=== PATIENT | female | born 1940 | race Caucasian/White ===

== ENCOUNTER 2021-12-23 13:56 | Inpatient (IN) | payer MEDICARE ==
[~2021-12-23] VITALS: Ht 149.9 cm; Wt 84.0 kg
[~2021-12-23 13:56] MED LIST: AMAR1TAB PO; ELIQ2.5T PO; FERR150C PO; FURO40TA2 PO; METF-839 PO; METO50TA7 PO; PACE200T PO; SITA50TAB PO; VALS1TAB66 PO
[2021-12-23] MEDS ORDERED: MORPHINE 2 MG/ML 1ML VIAL IV ONE (18:10)
[2021-12-23] MEDS ORDERED: ONDANSETRON 4MG/2ML VIAL IV ONE (18:10)
[2021-12-23] MEDS: NS 1,000 ML IV SCH ×2 (18:29→21:32)
[2021-12-23] MEDS ORDERED: ISOVUE-370 76% 100ML VIAL As Ordered ONE (18:30)
[2021-12-23 18:31] LABS: BASO % 0.3 % (0.0-1.0); EOS % 0.2 % (0.0-3.0); HEMATOCRIT 34.5 % (36.0-47.0); LYMPH # 0.6 10^3/uL (1.5-5.0); LYMPH % 4.4 % (24.0-44.0); MEAN CORPUSCULAR HEMOGLOBIN 23.5 pg (27.0-33.0); MONO # 0.9 10^3/uL (0.0-0.8); MONO % 7.4 % (2.0-8.0); NEUTROPHILS % 87.3 % (36.0-66.0); PLATELET COUNT, AUTOMATED 303 10^3/uL (150-450); RED BLOOD COUNT 4.26 10^6/uL (4.00-5.40); WHITE BLOOD COUNT 12.6 10^3/uL (4.0-10.0)
[2021-12-23 19:01] LABS: ALBUMIN 4.2 GM/DL (3.2-5.2); BILIRUBIN,DIRECT 0.4 MG/DL (0.0-0.2); BILIRUBIN,TOTAL 1.1 MG/DL (0.2-1.0); TOTAL PROTEIN 7.5 GM/DL (6.4-8.2)
[2021-12-23 20:28] LABS: CK-MB VALUE MASS 5.9 NG/ML (<3.6); MB/CK RELATIVE INDEX 8.19 (< OR =4)
[2021-12-23 20:36] LABS: RSV AMPLIFICATION NEGATIVE (NEGATIVE)
[2021-12-23] MEDS ORDERED: GLUCAGON INJ 1MG VIAL SC PRN (21:05)
[2021-12-23] MEDS ORDERED: GLUCOSE 4GM CHEW TABLET PO PRN (21:05)
[2021-12-23] MEDS ORDERED: PANTOPRAZOLE 40MG VIAL IV ONE (21:30)
[2021-12-23] MEDS ORDERED: ELIQ2.5T PO (22:06)
[2021-12-23] MEDS ORDERED: VENO20IN IV (22:06)
[2021-12-23] MEDS ORDERED: METF500T13 PO (22:06)
[2021-12-23] MEDS ORDERED: AMAR1TAB PO (22:06)
[2021-12-23] MEDS ORDERED: AMIO200T49 PO (22:06)
[2021-12-23] MEDS ORDERED: VALS1TAB66 PO (22:06)
[2021-12-23] MEDS ORDERED: SITA50TAB PO (22:06)
[2021-12-23] MEDS ORDERED: CYAN1000VL IM (22:06)
[2021-12-23] MEDS ORDERED: METO50TA7 PO (22:06)
[2021-12-23] MEDS ORDERED: FURO40TA2 PO (22:06)
[2021-12-23] MEDS ORDERED: HOME MED LIST COMPLETE! XX SCH (22:10)
[2021-12-23] MEDS: INSULIN LISPRO (NovoLOG) PER UNIT SC SCH (22:34)
[2021-12-24] MEDS: NS 1,000 ML IV SCH ×3 (02:31→19:41)
[2021-12-24] MEDS: HYDROMORPHONE HCL 0.5 MG/ 0.5 ML SYRINGE (J1170 PER 1) IV PRN ×2 (02:38→11:57)
[2021-12-24 03:14] VITALS: BP 139/66
[2021-12-24] MEDS: INSULIN LISPRO (NovoLOG) PER UNIT SC SCH ×3 (06:19→18:00)
[2021-12-24 07:03] LABS: CALCIUM LEVEL 9.7 MG/DL (8.8-10.2); CREATININE FOR GFR 1.27 MG/DL (0.55-1.30); GLOMERULAR FILTRATION RATE 42.8 (>32); POTASSIUM SERUM 4.3 MEQ/L (3.5-5.1)
[2021-12-24 07:04] VITALS: BP 140/72
[2021-12-24 07:04] LABS: MAGNESIUM LEVEL 1.9 MG/DL (1.8-2.4)
[2021-12-24] MEDS: METOPROLOL TART 25 MG TABLET PO SCH ×2 (09:26→21:44)
[2021-12-24] MEDS: VALSARTAN 40MG TABLET (DIOVAN) PO SCH (09:26)
[2021-12-24] MEDS: AMIODARONE 200 MG TAB (PACERONE) PO SCH (09:26)
[2021-12-24 13:45] VITALS: BP 96/40
[2021-12-24] MEDS: MORPHINE 4 MG/ML 1ML VIAL/SYRINGE IV PRN (19:42)
[2021-12-24 22:00] VITALS: BP 126/53
[2021-12-25] MEDS: MORPHINE 4 MG/ML 1ML VIAL/SYRINGE IV PRN ×2 (02:27→11:41)
[2021-12-25] MEDS: NS 1,000 ML IV SCH ×2 (04:16→21:42)
[2021-12-25 06:00] VITALS: BP 91/51
[2021-12-25] MEDS: INSULIN LISPRO (NovoLOG) PER UNIT SC SCH ×5 (06:00→23:49)
[2021-12-25 06:13] LABS: HEMATOCRIT 27.6 % (36.0-47.0); MEAN CORPUSCULAR HEMOGLOBIN 23.8 pg (27.0-33.0); MEAN CORPUSCULAR HGB CONC 28.6 g/dl (32.0-36.5); MEAN CORPUSCULAR VOLUME 83.1 fl (80.0-96.0); PLATELET COUNT, AUTOMATED 237 10^3/uL (150-450); RED BLOOD COUNT 3.32 10^6/uL (4.00-5.40)
[2021-12-25 06:20] LABS: HEMOGLOBIN 7.9 g/dl (12.0-15.5)
[2021-12-25 06:38] LABS: CALCIUM LEVEL 8.8 MG/DL (8.8-10.2); CREATININE FOR GFR 1.3 MG/DL (0.55-1.30); GLOMERULAR FILTRATION RATE 41.6 (>32)
[2021-12-25] MEDS ORDERED: GASTROGRAFIN SOLUTION 30ML (Q9963) As Ordered ONE (08:41)
[2021-12-25] MEDS: METOPROLOL TART 25 MG TABLET PO SCH ×2 (09:00→21:00)
[2021-12-25] MEDS: AMIODARONE 200 MG TAB (PACERONE) PO SCH (09:00)
[2021-12-25] MEDS: VALSARTAN 40MG TABLET (DIOVAN) PO SCH (09:00)
[2021-12-25 14:45] VITALS: BP 101/62
[2021-12-25] MEDS: METOCLOPRAMIDE INJ 10MG/2ML VIAL (J2765 PER 1) IV PRN (14:51)
[2021-12-25 22:00] VITALS: BP 101/52
[2021-12-26 02:00] VITALS: BP 118/50
[2021-12-26 06:00] VITALS: BP 117/50
[2021-12-26] MEDS: INSULIN LISPRO (NovoLOG) PER UNIT SC SCH ×3 (06:00→18:01)
[2021-12-26 06:08] LABS: HEMATOCRIT 30.2 % (36.0-47.0); HEMOGLOBIN 8.5 g/dl (12.0-15.5); MEAN CORPUSCULAR HEMOGLOBIN 23.5 pg (27.0-33.0); MEAN CORPUSCULAR HGB CONC 28.1 g/dl (32.0-36.5); MEAN CORPUSCULAR VOLUME 83.4 fl (80.0-96.0); PLATELET COUNT, AUTOMATED 236 10^3/uL (150-450); RED BLOOD COUNT 3.62 10^6/uL (4.00-5.40); WHITE BLOOD COUNT 5.1 10^3/uL (4.0-10.0)
[2021-12-26 06:26] LABS: CALCIUM LEVEL 9.9 MG/DL (8.8-10.2); CREATININE FOR GFR 1.14 MG/DL (0.55-1.30); GLOMERULAR FILTRATION RATE 48.5 (>32); POTASSIUM SERUM 3.7 MEQ/L (3.5-5.1)
[2021-12-26] MEDS: VALSARTAN 40MG TABLET (DIOVAN) PO SCH (09:00)
[2021-12-26] MEDS: METOPROLOL TART 25 MG TABLET PO SCH ×2 (09:00→20:11)
[2021-12-26] MEDS: AMIODARONE 200 MG TAB (PACERONE) PO SCH (09:00)
[2021-12-26] MEDS: D5W/0.45% SODIUM CHLORIDE 1,000 ML IV SCH ×2 (10:31→18:03)
[2021-12-26 14:00] VITALS: BP 115/50
[2021-12-26] MEDS ORDERED: CHLORASEPTIC SPRAY MT PRN (19:50)
[2021-12-26] MEDS: CEPACOL LOZENGE PO PRN ×2 (20:09→21:57)
[2021-12-26 20:11] VITALS: BP 113/50
[2021-12-27] VITALS (7 sets, daily range): BP systolic 95–132; BP diastolic 52–71
[2021-12-27] MEDS: MORPHINE 4 MG/ML 1ML VIAL/SYRINGE IV PRN (00:05)
[2021-12-27] MEDS: INSULIN LISPRO (NovoLOG) PER UNIT SC SCH ×4 (00:09→18:20)
[2021-12-27] MEDS: D5W/0.45% SODIUM CHLORIDE 1,000 ML IV SCH (03:51)
[2021-12-27 06:52] LABS: HEMATOCRIT 32.2 % (36.0-47.0); HEMOGLOBIN 9.2 g/dl (12.0-15.5); MEAN CORPUSCULAR HEMOGLOBIN 24.1 pg (27.0-33.0); MEAN CORPUSCULAR HGB CONC 28.6 g/dl (32.0-36.5); MEAN CORPUSCULAR VOLUME 84.5 fl (80.0-96.0); PLATELET COUNT, AUTOMATED 241 10^3/uL (150-450); RED BLOOD COUNT 3.81 10^6/uL (4.00-5.40); WHITE BLOOD COUNT 6.6 10^3/uL (4.0-10.0)
[2021-12-27 07:15] LABS: CREATININE FOR GFR 1.04 MG/DL (0.55-1.30); GLOMERULAR FILTRATION RATE 53.9 (>32); POTASSIUM SERUM 3.8 MEQ/L (3.5-5.1)
[2021-12-27] MEDS: METOPROLOL TART 25 MG TABLET PO SCH ×2 (07:52→21:00)
[2021-12-27] MEDS: VALSARTAN 40MG TABLET (DIOVAN) PO SCH (07:52)
[2021-12-27] MEDS: AMIODARONE 200 MG TAB (PACERONE) PO SCH (09:29)
[2021-12-27] MEDS: D5W 1,000 ML IV SCH (10:38)
[2021-12-27 13:35] LABS: CK-MB VALUE MASS 3.1 NG/ML (<3.6); MB/CK RELATIVE INDEX 3.26 (< OR =4)
[2021-12-27] MEDS ORDERED: METOPROLOL 5 MG/5 ML VIAL IV PRN ×2 (13:50→18:55)
[2021-12-27] MEDS: ACETAMINOPHEN TAB 650MG DOSE (2X325MG) PO PRN (18:08)
[2021-12-28] VITALS (7 sets, daily range): BP systolic 105–140; BP diastolic 52–63
[2021-12-28] MEDS: D5W 1,000 ML IV SCH ×2 (00:23→16:46)
[2021-12-28] MEDS: MORPHINE 4 MG/ML 1ML VIAL/SYRINGE IV PRN ×2 (00:23→09:41)
[2021-12-28 06:28] LABS: HEMATOCRIT 34.1 % (36.0-47.0); HEMOGLOBIN 9.8 g/dl (12.0-15.5); MEAN CORPUSCULAR HEMOGLOBIN 23.6 pg (27.0-33.0); MEAN CORPUSCULAR HGB CONC 28.7 g/dl (32.0-36.5); MEAN CORPUSCULAR VOLUME 82.2 fl (80.0-96.0); PLATELET COUNT, AUTOMATED 295 10^3/uL (150-450); RED BLOOD COUNT 4.15 10^6/uL (4.00-5.40); WHITE BLOOD COUNT 13.1 10^3/uL (4.0-10.0)
[2021-12-28 06:49] LABS: CALCIUM LEVEL 10.1 MG/DL (8.8-10.2); CREATININE FOR GFR 1.03 MG/DL (0.55-1.30); GLOMERULAR FILTRATION RATE 54.5 (>32); POTASSIUM SERUM 3.8 MEQ/L (3.5-5.1)
[2021-12-28] MEDS: INSULIN LISPRO (NovoLOG) PER UNIT SC SCH ×4 (06:54→18:07)
[2021-12-28] MEDS: METOPROLOL TART 25 MG TABLET PO SCH ×2 (09:42→20:40)
[2021-12-28] MEDS: AMIODARONE 200 MG TAB (PACERONE) PO SCH (09:44)
[2021-12-28] MEDS: METOCLOPRAMIDE INJ 10MG/2ML VIAL (J2765 PER 1) IV PRN (09:45)
[2021-12-28] MEDS: VALSARTAN 40MG TABLET (DIOVAN) PO SCH (09:51)
[2021-12-29] VITALS (8 sets, daily range): BP systolic 92–129; BP diastolic 46–80
[2021-12-29] MEDS: INSULIN LISPRO (NovoLOG) PER UNIT SC SCH ×5 (00:40→23:03)
[2021-12-29 06:24] LABS: HEMATOCRIT 29.1 % (36.0-47.0); HEMOGLOBIN 8.7 g/dl (12.0-15.5); MEAN CORPUSCULAR HEMOGLOBIN 23.8 pg (27.0-33.0); MEAN CORPUSCULAR HGB CONC 29.9 g/dl (32.0-36.5); MEAN CORPUSCULAR VOLUME 79.5 fl (80.0-96.0); PLATELET COUNT, AUTOMATED 247 10^3/uL (150-450); RED BLOOD COUNT 3.66 10^6/uL (4.00-5.40)
[2021-12-29] MEDS: D5W 1,000 ML IV SCH (06:24)
[2021-12-29 06:51] LABS: CALCIUM LEVEL 9.7 MG/DL (8.8-10.2); CREATININE FOR GFR 0.95 MG/DL (0.55-1.30); GLOMERULAR FILTRATION RATE 59.8 (>32); POTASSIUM SERUM 3.3 MEQ/L (3.5-5.1)
[2021-12-29] MEDS: AMIODARONE 200 MG TAB (PACERONE) PO SCH (08:47)
[2021-12-29] MEDS: METOPROLOL TART 25 MG TABLET PO SCH ×2 (08:48→21:23)
[2021-12-29] MEDS: VALSARTAN 40MG TABLET (DIOVAN) PO SCH (08:48)
[2021-12-29] MEDS: MORPHINE 4 MG/ML 1ML VIAL/SYRINGE IV PRN ×2 (08:50→22:58)
[2021-12-29] MEDS: cefTRIAXone SOD 1 GM in D5W MINI-BAG PLUS 50 ML IV SCH ×2 (11:17→22:51)
[2021-12-29] MEDS: KCL 10MEQ/100ML SWI (KRUN) 10 MEQ in IV 1 EA IV SCH ×6 (12:38→19:10)
[2021-12-29] MEDS ORDERED: predniSONE 20 MG TAB PO ONE (17:00)
[2021-12-29] MEDS: predniSONE 20 MG TAB PO SCH (21:22)
[2021-12-30] VITALS (14 sets, daily range): BP systolic 85–144; BP diastolic 40–73
[2021-12-30] MEDS ORDERED: NS 1,000 ML IV ONE ×2 (00:50→02:10)
[2021-12-30] MEDS: D5W 1,000 ML IV SCH ×2 (03:24→17:05)
[2021-12-30] MEDS: INSULIN LISPRO (NovoLOG) PER UNIT SC SCH ×4 (06:38→23:24)
[2021-12-30] MEDS ORDERED: KCL 20MEQ IN D5W 1000ML 1,000 ML IV SCH (08:33)
[2021-12-30] MEDS ORDERED: KCL 10MEQ/100ML SWI (KRUN) 10 MEQ in IV 1 EA IV SCH (09:00)
[2021-12-30] MEDS: AMIODARONE 200 MG TAB (PACERONE) PO SCH (09:29)
[2021-12-30] MEDS: VALSARTAN 40MG TABLET (DIOVAN) PO SCH (09:31)
[2021-12-30] MEDS: predniSONE 20 MG TAB PO SCH ×2 (09:31→20:32)
[2021-12-30] MEDS: METOPROLOL TART 25 MG TABLET PO SCH ×2 (09:32→20:32)
[2021-12-30] MEDS: PIPERACILLIN/TAZOBACTAM SOD 3.375 GM in D5W MINI-BAG PLUS 50 ML IV SCH ×3 (09:33→20:31)
[2021-12-30] MEDS ORDERED: LIDOCAINE 1% MDV 20ML VIAL As Ordered ONE (14:14)
[2021-12-30] MEDS: SODIUM CHLORIDE 0.9% INJ 10 ML SYR IV SCH (17:10)
[2021-12-31] VITALS: BP 110/52
[2021-12-31] MEDS ORDERED: ACETAMINOPHEN *IV* 1,000 MG in IV 1 EA IV ONE ×2
[2021-12-31] MEDS: D5W 1,000 ML IV SCH ×2 (00:18→12:35)
[2021-12-31] MEDS: PIPERACILLIN/TAZOBACTAM SOD 3.375 GM in D5W MINI-BAG PLUS 50 ML IV SCH ×4 (03:08→21:00)
[2021-12-31 04:00] VITALS: BP 122/59
[2021-12-31] MEDS: SODIUM CHLORIDE 0.9% INJ 10 ML SYR IV SCH ×2 (05:18→17:14)
[2021-12-31] MEDS: INSULIN LISPRO (NovoLOG) PER UNIT SC SCH ×3 (05:21→17:15)
[2021-12-31 05:53] LABS: HEMATOCRIT 29.1 % (36.0-47.0); HEMOGLOBIN 8.8 g/dl (12.0-15.5); MEAN CORPUSCULAR HEMOGLOBIN 24.1 pg (27.0-33.0); MEAN CORPUSCULAR HGB CONC 30.2 g/dl (32.0-36.5); MEAN CORPUSCULAR VOLUME 79.7 fl (80.0-96.0); PLATELET COUNT, AUTOMATED 266 10^3/uL (150-450); RED BLOOD COUNT 3.65 10^6/uL (4.00-5.40); WHITE BLOOD COUNT 14.4 10^3/uL (4.0-10.0)
[2021-12-31 06:24] LABS: BLOOD UREA NITROGEN 21 MG/DL (7-18); CALCIUM LEVEL 9.8 MG/DL (8.8-10.2); CARBON DIOXIDE LEVEL 26 MEQ/L (21-32); CHLORIDE LEVEL 102 MEQ/L (98-107); CREATININE FOR GFR 0.89 MG/DL (0.55-1.30); GLOMERULAR FILTRATION RATE > 60.0 (>32); GLUCOSE, FASTING 222 MG/DL (70-100); MAGNESIUM LEVEL 1.5 MG/DL (1.8-2.4); POTASSIUM SERUM 3.6 MEQ/L (3.5-5.1); SODIUM LEVEL 136 MEQ/L (136-145)
[2021-12-31] MEDS: MAG SULF 1GM/100ML (MAG RUN) 1 GM in IV 1 EA IV SCH ×2 (06:44→08:25)
[2021-12-31 08:00] VITALS: BP 121/54
[2021-12-31] MEDS: predniSONE 20 MG TAB PO SCH ×2 (08:30→21:00)
[2021-12-31] MEDS: AMIODARONE 200 MG TAB (PACERONE) PO SCH (08:30)
[2021-12-31] MEDS: METOPROLOL TART 25 MG TABLET PO SCH ×2 (08:30→21:00)
[2021-12-31] MEDS: VALSARTAN 40MG TABLET (DIOVAN) PO SCH (08:33)
[2021-12-31 11:35] VITALS: BP 120/57
[2021-12-31 15:51] VITALS: BP 108/52
[2021-12-31] MEDS ORDERED: BUPIVACAINE HCL 0.25% 30ML VIAL As Ordered ONE (17:43)
[2021-12-31] MEDS ORDERED: ETOMIDATE INJ 20MG/10ML VIAL As Ordered ONE (18:34)
[2021-12-31] MEDS ORDERED: fentaNYL 250 MCG/5 ML INJECTION As Ordered ONE (18:34)
[2021-12-31] MEDS ORDERED: LIDOCAINE 2% INJ 100 MG/5 ML SYRINGE As Ordered ONE ×3 (18:34→18:37)
[2021-12-31] MEDS ORDERED: ROCURONIUM BROMIDE 50 MG/5 ML VIAL As Ordered ONE ×3 (18:34→22:33)
[2021-12-31] MEDS ORDERED: PHENYLephrine 500MCG 5ML (100MCG/ML) SYRINGE As Ordered ONE (19:18)
[2021-12-31] MEDS ORDERED: ePHEDrine SULFATE 25 MG/5 ML(5MG/ML) SYRINGE As Ordered ONE (19:18)
[2021-12-31] MEDS ORDERED: dexameTHASONE 4 MG/ML 1ML VIAL (J1100 PER 1MG) As Ordered ONE (20:29)
[2021-12-31] MEDS ORDERED: ONDANSETRON 4MG/2ML VIAL As Ordered ONE (20:32)
[2021-12-31] MEDS ORDERED: SUGAMMADEX SODIUM 500 MG/5 ML VIAL (BRIDION) As Ordered ONE (20:33)
[2021-12-31] MEDS ORDERED: ACETAMINOPHEN 1000MG 100ML IV BTL (OFIRMEV) (J0131 PER 10MG) As Ordered ONE (20:34)
[2021-12-31] MEDS ORDERED: ZOSYN 3.375GM VIAL As Ordered ONE (21:31)
[2022-01-01] VITALS (10 sets, daily range): BP systolic 86–150; BP diastolic 43–62
[2022-01-01] MEDS ORDERED: PHENYLephrine 500MCG 5ML (100MCG/ML) SYRINGE As Ordered ONE (00:35)
[2022-01-01] MEDS ORDERED: fentaNYL 100 MCG/2 ML INJECTION As Ordered ONE (01:18)
[2022-01-01] MEDS ORDERED: ONDANSETRON 4MG/2ML VIAL IV PRN (01:30)
[2022-01-01] MEDS ORDERED: LR 1,000 ML IV SCH (01:30)
[2022-01-01] MEDS ORDERED: HYDROMORPHONE HCL 0.5 MG/ 0.5 ML SYRINGE (J1170 PER 1) IV PRN (01:30)
[2022-01-01] MEDS ORDERED: fentaNYL 100 MCG/2 ML INJECTION IV PRN (01:30)
[2022-01-01] MEDS: D5W/LR 1,000 ML IV SCH ×2 (02:36→12:16)
[2022-01-01] MEDS: PIPERACILLIN/TAZOBACTAM SOD 3.375 GM in D5W MINI-BAG PLUS 50 ML IV SCH ×4 (02:49→20:01)
[2022-01-01] MEDS ORDERED: NS 1,000 ML IV ONE (04:00)
[2022-01-01] MEDS: INSULIN LISPRO (NovoLOG) PER UNIT SC SCH ×5 (05:13→23:03)
[2022-01-01] MEDS: SODIUM CHLORIDE 0.9% INJ 10 ML SYR IV SCH ×2 (05:14→17:41)
[2022-01-01 06:38] LABS: HEMATOCRIT 28.7 % (36.0-47.0); HEMOGLOBIN 8.4 g/dl (12.0-15.5); MEAN CORPUSCULAR HEMOGLOBIN 23.9 pg (27.0-33.0); MEAN CORPUSCULAR HGB CONC 29.3 g/dl (32.0-36.5); MEAN CORPUSCULAR VOLUME 81.8 fl (80.0-96.0); PLATELET COUNT, AUTOMATED 293 10^3/uL (150-450); RED BLOOD COUNT 3.51 10^6/uL (4.00-5.40); WHITE BLOOD COUNT 19.2 10^3/uL (4.0-10.0)
[2022-01-01 07:09] LABS: BLOOD UREA NITROGEN 19 MG/DL (7-18); CALCIUM LEVEL 9.2 MG/DL (8.8-10.2); CARBON DIOXIDE LEVEL 21 MEQ/L (21-32); CHLORIDE LEVEL 103 MEQ/L (98-107); CREATININE FOR GFR 0.74 MG/DL (0.55-1.30); GLOMERULAR FILTRATION RATE > 60.0 (>32); GLUCOSE, FASTING 251 MG/DL (70-100); SODIUM LEVEL 137 MEQ/L (136-145)
[2022-01-01] MEDS: predniSONE 20 MG TAB PO SCH ×2 (09:38→20:02)
[2022-01-01] MEDS: VALSARTAN 40MG TABLET (DIOVAN) PO SCH (09:38)
[2022-01-01] MEDS: AMIODARONE 200 MG TAB (PACERONE) PO SCH (09:38)
[2022-01-01] MEDS: METOPROLOL TART 25 MG TABLET PO SCH ×2 (09:38→20:02)
[2022-01-01 10:11] LABS: BASO % 0.1 % (0.0-1.0); HEMATOCRIT 27.9 % (36.0-47.0); HEMOGLOBIN 8.3 g/dl (12.0-15.5); LYMPH # 0.4 10^3/uL (1.5-5.0); LYMPH % 1.8 % (24.0-44.0); MEAN CORPUSCULAR HEMOGLOBIN 23.9 pg (27.0-33.0); MEAN CORPUSCULAR HGB CONC 29.7 g/dl (32.0-36.5); MEAN CORPUSCULAR VOLUME 80.4 fl (80.0-96.0); MONO # 1.1 10^3/uL (0.0-0.8); MONO % 5.3 % (2.0-8.0); NEUTROPHILS # 18.8 10^3/uL (1.5-8.5); NEUTROPHILS % 92.3 % (36.0-66.0); PLATELET COUNT, AUTOMATED 295 10^3/uL (150-450); RED BLOOD COUNT 3.47 10^6/uL (4.00-5.40); WHITE BLOOD COUNT 20.3 10^3/uL (4.0-10.0)
[2022-01-01 10:28] LABS: BILIRUBIN,TOTAL 0.4 MG/DL (0.2-1.0); CALCIUM LEVEL 9.4 MG/DL (8.8-10.2); CREATININE FOR GFR 0.96 MG/DL (0.55-1.30); GLOMERULAR FILTRATION RATE 59.1 (>32); TOTAL PROTEIN 4.4 GM/DL (6.4-8.2)
[2022-01-01] MEDS: MORPHINE 4 MG/ML 1ML VIAL/SYRINGE IV PRN (14:27)
[2022-01-01] MEDS ORDERED: INSULIN LISPRO (NovoLOG) PER UNIT SC SCH (18:00)
[2022-01-01] MEDS ORDERED: MULTIVITAMIN -ADULT INJECTION 10 ML, ZINC/COPPER/MANGANESE/SELENIUM 1 ML in AMINO AC/EL... IV SCH (18:00)
[2022-01-01] MEDS ORDERED: FAT EMULSION IV 20% 500 ML IV SCH (18:00)
[2022-01-02] VITALS (15 sets, daily range): BP systolic 82–150; BP diastolic 40–86
[2022-01-02] MEDS ORDERED: NS 500 ML IV ONE ×2 (00:30→01:20)
[2022-01-02] MEDS ORDERED: NS 1,000 ML IV SCH (01:20)
[2022-01-02] MEDS: PIPERACILLIN/TAZOBACTAM SOD 3.375 GM in D5W MINI-BAG PLUS 50 ML IV SCH ×4 (02:06→20:17)
[2022-01-02 05:14] LABS: HEMATOCRIT 23.2 % (36.0-47.0); MEAN CORPUSCULAR HEMOGLOBIN 23.8 pg (27.0-33.0); MEAN CORPUSCULAR HGB CONC 29.7 g/dl (32.0-36.5); PLATELET COUNT, AUTOMATED 246 10^3/uL (150-450); WHITE BLOOD COUNT 16.5 10^3/uL (4.0-10.0)
[2022-01-02 05:16] LABS: HEMOGLOBIN 6.9 g/dl (12.0-15.5)
[2022-01-02] MEDS: INSULIN LISPRO (NovoLOG) PER UNIT SC SCH ×4 (05:23→23:53)
[2022-01-02] MEDS: SODIUM CHLORIDE 0.9% INJ 10 ML SYR IV SCH ×2 (05:24→18:34)
[2022-01-02 05:42] LABS: CREATININE FOR GFR 1.1 MG/DL (0.55-1.30); GLOMERULAR FILTRATION RATE 50.5 (>32); POTASSIUM SERUM 4.1 MEQ/L (3.5-5.1)
[2022-01-02] MEDS: LEVEMIR (INSULIN DETEMIR) 1 UNITS/0.01ML SC SCH (09:28)
[2022-01-02 09:30] LABS: MAGNESIUM LEVEL 1.7 MG/DL (1.8-2.4)
[2022-01-02] MEDS: METOPROLOL TART 25 MG TABLET PO SCH ×2 (09:30→20:19)
[2022-01-02] MEDS: AMIODARONE 200 MG TAB (PACERONE) PO SCH (09:31)
[2022-01-02] MEDS ORDERED: MAG SULF 1GM/100ML (MAG RUN) 1 GM in IV 1 EA IV ONE (12:00)
[2022-01-02] MEDS ORDERED: AMINO AC/ELECTROLYTE/DEX/CALC 2,000 ML IV SCH (18:00)
[2022-01-02] MEDS ORDERED: FAT EMULSION IV 20% 500 ML IV SCH (18:00)
[2022-01-03 00:13] VITALS: BP 120/84
[2022-01-03] MEDS: PIPERACILLIN/TAZOBACTAM SOD 3.375 GM in D5W MINI-BAG PLUS 50 ML IV SCH ×4 (02:40→20:27)
[2022-01-03 04:17] VITALS: BP 102/55
[2022-01-03] MEDS: SODIUM CHLORIDE 0.9% INJ 10 ML SYR IV SCH ×2 (05:40→18:13)
[2022-01-03] MEDS: INSULIN LISPRO (NovoLOG) PER UNIT SC SCH ×3 (05:40→18:13)
[2022-01-03 05:46] LABS: HEMATOCRIT 32.9 % (36.0-47.0); HEMOGLOBIN 10.1 g/dl (12.0-15.5); MEAN CORPUSCULAR HEMOGLOBIN 24.8 pg (27.0-33.0); MEAN CORPUSCULAR HGB CONC 30.7 g/dl (32.0-36.5); MEAN CORPUSCULAR VOLUME 80.8 fl (80.0-96.0); PLATELET COUNT, AUTOMATED 234 10^3/uL (150-450); RED BLOOD COUNT 4.07 10^6/uL (4.00-5.40); WHITE BLOOD COUNT 20.9 10^3/uL (4.0-10.0)
[2022-01-03 06:03] LABS: BLOOD UREA NITROGEN 25 MG/DL (7-18); CALCIUM LEVEL 9.1 MG/DL (8.8-10.2); CARBON DIOXIDE LEVEL 26 MEQ/L (21-32); CHLORIDE LEVEL 104 MEQ/L (98-107); CREATININE FOR GFR 0.79 MG/DL (0.55-1.30); GLOMERULAR FILTRATION RATE > 60.0 (>32); GLUCOSE, FASTING 216 MG/DL (70-100); POTASSIUM SERUM 3.5 MEQ/L (3.5-5.1); SODIUM LEVEL 139 MEQ/L (136-145)
[2022-01-03 07:54] VITALS: BP 127/58
[2022-01-03] MEDS: AMIODARONE 200 MG TAB (PACERONE) PO SCH (08:54)
[2022-01-03] MEDS: LEVEMIR (INSULIN DETEMIR) 1 UNITS/0.01ML SC SCH (08:54)
[2022-01-03] MEDS: METOPROLOL TART 25 MG TABLET PO SCH ×2 (08:54→20:29)
[2022-01-03 09:16] LABS: MAGNESIUM LEVEL 1.9 MG/DL (1.8-2.4)
[2022-01-03 11:44] VITALS: BP 134/63
[2022-01-03 15:54] VITALS: BP 146/63
[2022-01-03] MEDS ORDERED: FAT EMULSION IV 20% 500 ML IV SCH (18:00)
[2022-01-03] MEDS ORDERED: AMINO AC/ELECTROLYTE/DEX/CALC 2,000 ML IV SCH (18:00)
[2022-01-03 20:00] VITALS: BP 121/57
[2022-01-03] MEDS: APIXABAN 2.5 MG TAB (ELIQUIS) PO SCH (20:29)
[2022-01-04] VITALS: BP 135/62
[2022-01-04] MEDS: INSULIN LISPRO (NovoLOG) PER UNIT SC SCH ×5 (00:11→23:36)
[2022-01-04] MEDS: PIPERACILLIN/TAZOBACTAM SOD 3.375 GM in D5W MINI-BAG PLUS 50 ML IV SCH ×4 (03:14→21:49)
[2022-01-04] MEDS: MORPHINE 4 MG/ML 1ML VIAL/SYRINGE IV PRN (03:24)
[2022-01-04 04:00] VITALS: BP 144/65
[2022-01-04 04:15] LABS: HEMATOCRIT 31.9 % (36.0-47.0); MEAN CORPUSCULAR HEMOGLOBIN 24.9 pg (27.0-33.0); MEAN CORPUSCULAR HGB CONC 31.3 g/dl (32.0-36.5); MEAN CORPUSCULAR VOLUME 79.4 fl (80.0-96.0); PLATELET COUNT, AUTOMATED 242 10^3/uL (150-450); RED BLOOD COUNT 4.02 10^6/uL (4.00-5.40); WHITE BLOOD COUNT 16.9 10^3/uL (4.0-10.0)
[2022-01-04 04:34] LABS: BLOOD UREA NITROGEN 20 MG/DL (7-18); CARBON DIOXIDE LEVEL 27 MEQ/L (21-32); CHLORIDE LEVEL 106 MEQ/L (98-107); CREATININE FOR GFR 0.66 MG/DL (0.55-1.30); GLOMERULAR FILTRATION RATE > 60.0 (>32); GLUCOSE, FASTING 174 MG/DL (70-100); POTASSIUM SERUM 3.5 MEQ/L (3.5-5.1); SODIUM LEVEL 140 MEQ/L (136-145)
[2022-01-04] MEDS: SODIUM CHLORIDE 0.9% INJ 10 ML SYR IV SCH ×2 (06:06→18:28)
[2022-01-04 07:45] VITALS: BP 121/60
[2022-01-04] MEDS: LEVEMIR (INSULIN DETEMIR) 1 UNITS/0.01ML SC SCH (08:45)
[2022-01-04] MEDS: APIXABAN 2.5 MG TAB (ELIQUIS) PO SCH ×2 (08:46→21:45)
[2022-01-04] MEDS: AMIODARONE 200 MG TAB (PACERONE) PO SCH (08:47)
[2022-01-04] MEDS: METOPROLOL TART 25 MG TABLET PO SCH ×2 (08:48→21:45)
[2022-01-04 11:40] VITALS: BP 110/51
[2022-01-04 16:15] VITALS: BP 107/55
[2022-01-04] MEDS ORDERED: FAT EMULSION IV 20% 500 ML IV SCH (18:00)
[2022-01-04] MEDS ORDERED: AMINO AC/ELECTROLYTE/DEX/CALC 2,000 ML IV SCH (18:00)
[2022-01-04 20:00] VITALS: BP 136/59
[2022-01-04] MEDS: PERCOCET 5MG/325MG TAB PO PRN (21:44)
[2022-01-04] MEDS: SODIUM CHLORIDE 0.9% INJ 10 ML SYR IV PRN (23:21)
[2022-01-05] VITALS: BP 106/53
[2022-01-05] MEDS: PIPERACILLIN/TAZOBACTAM SOD 3.375 GM in D5W MINI-BAG PLUS 50 ML IV SCH ×4 (02:08→20:09)
[2022-01-05 04:00] VITALS: BP 122/57
[2022-01-05] MEDS: INSULIN LISPRO (NovoLOG) PER UNIT SC SCH ×3 (06:11→18:09)
[2022-01-05] MEDS: SODIUM CHLORIDE 0.9% INJ 10 ML SYR IV SCH ×2 (06:11→18:08)
[2022-01-05 08:00] VITALS: BP 116/57
[2022-01-05 08:05] LABS: HEMATOCRIT 29.8 % (36.0-47.0); HEMOGLOBIN 9.1 g/dl (12.0-15.5); MEAN CORPUSCULAR HEMOGLOBIN 24.9 pg (27.0-33.0); MEAN CORPUSCULAR HGB CONC 30.5 g/dl (32.0-36.5); MEAN CORPUSCULAR VOLUME 81.6 fl (80.0-96.0); PLATELET COUNT, AUTOMATED 264 10^3/uL (150-450); RED BLOOD COUNT 3.65 10^6/uL (4.00-5.40); WHITE BLOOD COUNT 9.7 10^3/uL (4.0-10.0)
[2022-01-05 08:32] LABS: ALBUMIN 1.5 GM/DL (3.2-5.2); ALT/SGPT 17 U/L (12-78); BILIRUBIN,TOTAL 0.3 MG/DL (0.2-1.0); BLOOD UREA NITROGEN 20 MG/DL (7-18); CARBON DIOXIDE LEVEL 26 MEQ/L (21-32); CHLORIDE LEVEL 106 MEQ/L (98-107); CREATININE FOR GFR 0.68 MG/DL (0.55-1.30); GLOMERULAR FILTRATION RATE > 60.0 (>32); GLUCOSE, FASTING 203 MG/DL (70-100); MAGNESIUM LEVEL 1.8 MG/DL (1.8-2.4); PHOSPHORUS LEVEL 2.9 MG/DL (2.5-4.9); POTASSIUM SERUM 3.6 MEQ/L (3.5-5.1); SODIUM LEVEL 139 MEQ/L (136-145); TOTAL PROTEIN 4.3 GM/DL (6.4-8.2); TRIGLYCERIDES LEVEL 116 MG/DL (<150)
[2022-01-05] MEDS: LEVEMIR (INSULIN DETEMIR) 1 UNITS/0.01ML SC SCH (08:44)
[2022-01-05] MEDS: AMIODARONE 200 MG TAB (PACERONE) PO SCH (08:44)
[2022-01-05] MEDS: APIXABAN 2.5 MG TAB (ELIQUIS) PO SCH ×2 (08:44→20:08)
[2022-01-05] MEDS: METOPROLOL TART 25 MG TABLET PO SCH ×2 (08:46→20:09)
[2022-01-05 12:00] VITALS: BP 121/56
[2022-01-05 16:00] VITALS: BP 128/78
[2022-01-05] MEDS ORDERED: COLCHICINE 0.6 MG TABLET PO ONE ×2 (16:00→17:00)
[2022-01-05] MEDS ORDERED: FAT EMULSION IV 20% 500 ML IV SCH (18:00)
[2022-01-05] MEDS ORDERED: AMINO AC/ELECTROLYTE/DEX/CALC 2,000 ML IV SCH (18:00)
[2022-01-05 20:00] VITALS: BP 130/78
[2022-01-05] MEDS ORDERED: GABAPENTIN 100 MG CAP PO ONE (20:00)
[2022-01-05] MEDS: ACETAMINOPHEN TAB 650MG DOSE (2X325MG) PO PRN (23:56)
[2022-01-06] VITALS: BP 137/60
[2022-01-06] MEDS: INSULIN LISPRO (NovoLOG) PER UNIT SC SCH ×5 (00:11→23:55)
[2022-01-06] MEDS: PIPERACILLIN/TAZOBACTAM SOD 3.375 GM in D5W MINI-BAG PLUS 50 ML IV SCH ×4 (02:20→21:07)
[2022-01-06 04:00] VITALS: BP 134/61
[2022-01-06 04:59] LABS: BASO % 0.3 % (0.0-1.0); EOS # 0.2 10^3/uL (0.0-0.5); EOS % 1.5 % (0.0-3.0); HEMATOCRIT 28.6 % (36.0-47.0); HEMOGLOBIN 8.7 g/dl (12.0-15.5); LYMPH # 0.6 10^3/uL (1.5-5.0); LYMPH % 6.5 % (24.0-44.0); MEAN CORPUSCULAR HEMOGLOBIN 24.2 pg (27.0-33.0); MEAN CORPUSCULAR HGB CONC 30.4 g/dl (32.0-36.5); MEAN CORPUSCULAR VOLUME 79.7 fl (80.0-96.0); MONO # 0.9 10^3/uL (0.0-0.8); NEUTROPHILS # 7.8 10^3/uL (1.5-8.5); NEUTROPHILS % 78.9 % (36.0-66.0); PLATELET COUNT, AUTOMATED 295 10^3/uL (150-450); RED BLOOD COUNT 3.59 10^6/uL (4.00-5.40); WHITE BLOOD COUNT 9.8 10^3/uL (4.0-10.0)
[2022-01-06 05:17] LABS: BLOOD UREA NITROGEN 17 MG/DL (7-18); CALCIUM LEVEL 9.1 MG/DL (8.8-10.2); CARBON DIOXIDE LEVEL 28 MEQ/L (21-32); CHLORIDE LEVEL 107 MEQ/L (98-107); CREATININE FOR GFR 0.71 MG/DL (0.55-1.30); GLOMERULAR FILTRATION RATE > 60.0 (>32); GLUCOSE, FASTING 173 MG/DL (70-100); PHOSPHORUS LEVEL 2.6 MG/DL (2.5-4.9); POTASSIUM SERUM 3.6 MEQ/L (3.5-5.1); SODIUM LEVEL 139 MEQ/L (136-145); URIC ACID 2.1 MG/DL (2.6-6.0)
[2022-01-06] MEDS: SODIUM CHLORIDE 0.9% INJ 10 ML SYR IV SCH ×2 (05:42→18:47)
[2022-01-06] MEDS ORDERED: COLCHICINE 0.6 MG TABLET PO SCH (06:00)
[2022-01-06 08:03] VITALS: BP 145/64
[2022-01-06] MEDS: METOCLOPRAMIDE INJ 10MG/2ML VIAL (J2765 PER 1) IV SCH ×4 (10:27→21:06)
[2022-01-06] MEDS: AMIODARONE 200 MG TAB (PACERONE) PO SCH (10:28)
[2022-01-06] MEDS: LACTULOSE 20 GM/30 ML SYRUP UD PO SCH ×2 (10:28→20:44)
[2022-01-06] MEDS: APIXABAN 2.5 MG TAB (ELIQUIS) PO SCH ×2 (10:28→20:45)
[2022-01-06] MEDS: LEVEMIR (INSULIN DETEMIR) 1 UNITS/0.01ML SC SCH (10:28)
[2022-01-06] MEDS: METOPROLOL TART 25 MG TABLET PO SCH ×2 (10:29→20:45)
[2022-01-06 11:44] VITALS: BP 142/61
[2022-01-06 17:10] VITALS: BP 140/62
[2022-01-06] MEDS ORDERED: FAT EMULSION IV 250 ML IV ONE (18:00)
[2022-01-06] MEDS ORDERED: MULTIVITAMIN -ADULT INJECTION 10 ML, ZINC/COPPER/MANGANESE/SELENIUM 1 ML in AMINO AC/EL... IV SCH (18:00)
[2022-01-06] MEDS: SODIUM CHLORIDE 0.9% INJ 10 ML SYR IV PRN ×2 (21:07→22:41)
[2022-01-06 22:00] VITALS: BP 128/54
[2022-01-07 02:00] VITALS: BP 126/59
[2022-01-07] MEDS: PIPERACILLIN/TAZOBACTAM SOD 3.375 GM in D5W MINI-BAG PLUS 50 ML IV SCH (02:36)
[2022-01-07] MEDS: SODIUM CHLORIDE 0.9% INJ 10 ML SYR IV SCH ×2 (04:19→18:35)
[2022-01-07 05:30] VITALS: BP 142/73
[2022-01-07] MEDS: INSULIN LISPRO (NovoLOG) PER UNIT SC SCH ×3 (05:40→18:34)
[2022-01-07 06:43] LABS: BASO % 0.5 % (0.0-1.0); EOS # 0.1 10^3/uL (0.0-0.5); EOS % 1.6 % (0.0-3.0); HEMATOCRIT 29.9 % (36.0-47.0); LYMPH # 0.6 10^3/uL (1.5-5.0); LYMPH % 6.9 % (24.0-44.0); MEAN CORPUSCULAR HEMOGLOBIN 24.7 pg (27.0-33.0); MEAN CORPUSCULAR HGB CONC 30.1 g/dl (32.0-36.5); MEAN CORPUSCULAR VOLUME 82.1 fl (80.0-96.0); MONO # 0.7 10^3/uL (0.0-0.8); MONO % 7.6 % (2.0-8.0); NEUTROPHILS # 7.1 10^3/uL (1.5-8.5); NEUTROPHILS % 81.3 % (36.0-66.0); PLATELET COUNT, AUTOMATED 321 10^3/uL (150-450); RED BLOOD COUNT 3.64 10^6/uL (4.00-5.40); WHITE BLOOD COUNT 8.7 10^3/uL (4.0-10.0)
[2022-01-07 07:02] LABS: BLOOD UREA NITROGEN 16 MG/DL (7-18); CALCIUM LEVEL 9.1 MG/DL (8.8-10.2); CARBON DIOXIDE LEVEL 28 MEQ/L (21-32); CHLORIDE LEVEL 106 MEQ/L (98-107); CREATININE FOR GFR 0.73 MG/DL (0.55-1.30); GLOMERULAR FILTRATION RATE > 60.0 (>32); GLUCOSE, FASTING 235 MG/DL (70-100); MAGNESIUM LEVEL 2.2 MG/DL (1.8-2.4); PHOSPHORUS LEVEL 2.6 MG/DL (2.5-4.9); POTASSIUM SERUM 3.6 MEQ/L (3.5-5.1); SODIUM LEVEL 137 MEQ/L (136-145)
[2022-01-07] MEDS: LACTULOSE 20 GM/30 ML SYRUP UD PO SCH (09:00)
[2022-01-07] MEDS: METOCLOPRAMIDE INJ 10MG/2ML VIAL (J2765 PER 1) IV SCH ×4 (09:45→22:21)
[2022-01-07] MEDS: AMIODARONE 200 MG TAB (PACERONE) PO SCH (09:45)
[2022-01-07] MEDS: METOPROLOL TART 25 MG TABLET PO SCH ×2 (09:45→22:22)
[2022-01-07] MEDS: APIXABAN 2.5 MG TAB (ELIQUIS) PO SCH ×2 (09:45→22:21)
[2022-01-07] MEDS: LEVEMIR (INSULIN DETEMIR) 1 UNITS/0.01ML SC SCH (09:46)
[2022-01-07] MEDS: SODIUM CHLORIDE 0.9% INJ 10 ML SYR IV PRN (09:53)
[2022-01-07 10:00] VITALS: BP 138/71
[2022-01-07] MEDS: MIRALAX *UNIT DOSE* 17GM PACKET PO SCH ×2 (13:53→21:00)
[2022-01-07 14:00] VITALS: BP 123/54
[2022-01-07 18:00] VITALS: BP 137/55
[2022-01-07] MEDS ORDERED: AMINO AC/ELECTROLYTE/DEX/CALC 2,000 ML IV SCH (18:00)
[2022-01-07] MEDS ORDERED: FAT EMULSION IV 250 ML IV ONE (18:00)
[2022-01-07 22:00] VITALS: BP 134/54
[2022-01-08] MEDS: INSULIN LISPRO (NovoLOG) PER UNIT SC SCH ×4 (00:19→19:11)
[2022-01-08 02:00] VITALS: BP 134/61
[2022-01-08] MEDS: SODIUM CHLORIDE 0.9% INJ 10 ML SYR IV SCH ×2 (05:14→17:37)
[2022-01-08 06:00] VITALS: BP 124/59
[2022-01-08 06:08] LABS: BASO % 0.3 % (0.0-1.0); EOS # 0.2 10^3/uL (0.0-0.5); HEMATOCRIT 30.2 % (36.0-47.0); HEMOGLOBIN 8.9 g/dl (12.0-15.5); LYMPH # 0.7 10^3/uL (1.5-5.0); LYMPH % 7.7 % (24.0-44.0); MEAN CORPUSCULAR HEMOGLOBIN 24.6 pg (27.0-33.0); MEAN CORPUSCULAR HGB CONC 29.5 g/dl (32.0-36.5); MEAN CORPUSCULAR VOLUME 83.4 fl (80.0-96.0); MONO # 0.8 10^3/uL (0.0-0.8); MONO % 8.9 % (2.0-8.0); NEUTROPHILS % 79.3 % (36.0-66.0); PLATELET COUNT, AUTOMATED 312 10^3/uL (150-450); RED BLOOD COUNT 3.62 10^6/uL (4.00-5.40); WHITE BLOOD COUNT 8.8 10^3/uL (4.0-10.0)
[2022-01-08 06:31] LABS: BLOOD UREA NITROGEN 17 MG/DL (7-18); CALCIUM LEVEL 9.1 MG/DL (8.8-10.2); CARBON DIOXIDE LEVEL 30 MEQ/L (21-32); CHLORIDE LEVEL 106 MEQ/L (98-107); CREATININE FOR GFR 0.66 MG/DL (0.55-1.30); GLOMERULAR FILTRATION RATE > 60.0 (>32); GLUCOSE, FASTING 173 MG/DL (70-100); MAGNESIUM LEVEL 2.2 MG/DL (1.8-2.4); POTASSIUM SERUM 3.7 MEQ/L (3.5-5.1); SODIUM LEVEL 139 MEQ/L (136-145)
[2022-01-08] MEDS ORDERED: E-Z-PAQUE 96% w/w SUSP 176GM BTL As Ordered ONE (08:08)
[2022-01-08] MEDS: METOCLOPRAMIDE INJ 10MG/2ML VIAL (J2765 PER 1) IV SCH ×4 (09:00→21:04)
[2022-01-08] MEDS: APIXABAN 2.5 MG TAB (ELIQUIS) PO SCH ×2 (09:00→21:04)
[2022-01-08] MEDS: MIRALAX *UNIT DOSE* 17GM PACKET PO SCH ×2 (09:00→19:23)
[2022-01-08] MEDS: METOPROLOL TART 25 MG TABLET PO SCH ×2 (09:00→21:05)
[2022-01-08 12:34] VITALS: BP 143/77
[2022-01-08] MEDS: LEVEMIR (INSULIN DETEMIR) 1 UNITS/0.01ML SC SCH (12:46)
[2022-01-08] MEDS: AMIODARONE 200 MG TAB (PACERONE) PO SCH (14:05)
[2022-01-08 14:42] VITALS: BP 158/72
[2022-01-08 18:00] VITALS: BP 145/65
[2022-01-08] MEDS ORDERED: MULTIVITAMIN -ADULT INJECTION 10 ML, ZINC/COPPER/MANGANESE/SELENIUM 1 ML in AMINO AC/EL... IV SCH (18:00)
[2022-01-08] MEDS ORDERED: FAT EMULSION IV 250 ML IV ONE (18:00)
[2022-01-08] MEDS: PERCOCET 5MG/325MG TAB PO PRN (21:51)
[2022-01-09] VITALS (8 sets, daily range): BP systolic 118–132; BP diastolic 58–66
[2022-01-09] MEDS: INSULIN LISPRO (NovoLOG) PER UNIT SC SCH ×4 (00:46→18:09)
[2022-01-09] MEDS: SODIUM CHLORIDE 0.9% INJ 10 ML SYR IV SCH ×2 (06:02→18:10)
[2022-01-09] MEDS: MIRALAX *UNIT DOSE* 17GM PACKET PO SCH ×3 (10:28→21:00)
[2022-01-09] MEDS: METOPROLOL TART 25 MG TABLET PO SCH ×2 (10:28→21:58)
[2022-01-09] MEDS: APIXABAN 2.5 MG TAB (ELIQUIS) PO SCH ×2 (10:28→21:58)
[2022-01-09] MEDS: AMIODARONE 200 MG TAB (PACERONE) PO SCH (10:28)
[2022-01-09] MEDS: LEVEMIR (INSULIN DETEMIR) 1 UNITS/0.01ML SC SCH (10:28)
[2022-01-09] MEDS: METOCLOPRAMIDE INJ 10MG/2ML VIAL (J2765 PER 1) IV SCH ×4 (10:28→21:58)
[2022-01-09] MEDS ORDERED: AMINO AC/ELECTROLYTE/DEX/CALC 2,000 ML IV SCH (18:00)
[2022-01-09] MEDS ORDERED: FAT EMULSION IV 250 ML IV ONE (18:00)
[2022-01-09] MEDS: SODIUM CHLORIDE 0.9% INJ 10 ML SYR IV PRN (22:04)
[2022-01-10] MEDS: INSULIN LISPRO (NovoLOG) PER UNIT SC SCH ×4 (00:03→18:00)
[2022-01-10 04:40] VITALS: BP 113/55
[2022-01-10] MEDS: SODIUM CHLORIDE 0.9% INJ 10 ML SYR IV SCH ×2 (05:37→18:19)
[2022-01-10 06:12] LABS: HEMATOCRIT 29.3 % (36.0-47.0); HEMOGLOBIN 8.8 g/dl (12.0-15.5); MEAN CORPUSCULAR HEMOGLOBIN 24.5 pg (27.0-33.0); MEAN CORPUSCULAR VOLUME 81.6 fl (80.0-96.0); PLATELET COUNT, AUTOMATED 361 10^3/uL (150-450); RED BLOOD COUNT 3.59 10^6/uL (4.00-5.40); WHITE BLOOD COUNT 11.6 10^3/uL (4.0-10.0)
[2022-01-10 06:46] LABS: BLOOD UREA NITROGEN 20 MG/DL (7-18); CALCIUM LEVEL 9.5 MG/DL (8.8-10.2); CARBON DIOXIDE LEVEL 28 MEQ/L (21-32); CHLORIDE LEVEL 105 MEQ/L (98-107); CREATININE FOR GFR 0.63 MG/DL (0.55-1.30); GLOMERULAR FILTRATION RATE > 60.0 (>32); GLUCOSE, FASTING 184 MG/DL (70-100); POTASSIUM SERUM 4.5 MEQ/L (3.5-5.1); SODIUM LEVEL 137 MEQ/L (136-145)
[2022-01-10 08:41] VITALS: BP 96/55
[2022-01-10] MEDS: METOCLOPRAMIDE INJ 10MG/2ML VIAL (J2765 PER 1) IV SCH ×4 (08:42→20:06)
[2022-01-10] MEDS: LEVEMIR (INSULIN DETEMIR) 1 UNITS/0.01ML SC SCH (08:42)
[2022-01-10] MEDS: APIXABAN 2.5 MG TAB (ELIQUIS) PO SCH ×2 (08:42→20:06)
[2022-01-10] MEDS: METOPROLOL TART 25 MG TABLET PO SCH ×2 (08:43→20:07)
[2022-01-10] MEDS: MIRALAX *UNIT DOSE* 17GM PACKET PO SCH (08:44)
[2022-01-10] MEDS: AMIODARONE 200 MG TAB (PACERONE) PO SCH ×2 (08:54→10:33)
[2022-01-10 10:00] VITALS: BP 128/61
[2022-01-10 14:00] VITALS: BP 147/68
[2022-01-10 18:00] VITALS: BP_SYST 129; BP_SYST 174; BP_DIAS 72; BP_DIAS 84
[2022-01-10] MEDS: COLCHICINE 0.6 MG TABLET PO SCH (18:19)
[2022-01-10] MEDS: DEXTROSE 50% 50 ML SYRINGE IV PRN (19:57)
[2022-01-10] MEDS ORDERED: D5W/0.45% SODIUM CHLORIDE 1,000 ML IV ONE (20:10)
[2022-01-10 22:00] VITALS: BP 120/70
[2022-01-11 02:00] VITALS: BP_SYST 118; BP_SYST 126; BP_DIAS 68; BP_DIAS 74
[2022-01-11] MEDS: ONDANSETRON 4MG/2ML VIAL IV PRN (02:55)
[2022-01-11 06:00] VITALS: BP 114/66
[2022-01-11] MEDS: SODIUM CHLORIDE 0.9% INJ 10 ML SYR IV SCH ×2 (06:11→18:05)
[2022-01-11] MEDS: INSULIN LISPRO (NovoLOG) PER UNIT SC SCH ×4 (06:15→18:00)
[2022-01-11 07:11] LABS: HEMATOCRIT 31.2 % (36.0-47.0); HEMOGLOBIN 9.2 g/dl (12.0-15.5); MEAN CORPUSCULAR HGB CONC 29.5 g/dl (32.0-36.5); MEAN CORPUSCULAR VOLUME 81.3 fl (80.0-96.0); PLATELET COUNT, AUTOMATED 374 10^3/uL (150-450); RED BLOOD COUNT 3.84 10^6/uL (4.00-5.40); WHITE BLOOD COUNT 13.7 10^3/uL (4.0-10.0)
[2022-01-11 07:33] LABS: BLOOD UREA NITROGEN 16 MG/DL (7-18); CALCIUM LEVEL 9.5 MG/DL (8.8-10.2); CARBON DIOXIDE LEVEL 25 MEQ/L (21-32); CHLORIDE LEVEL 105 MEQ/L (98-107); GLOMERULAR FILTRATION RATE > 60.0 (>32); GLUCOSE, FASTING 165 MG/DL (70-100); POTASSIUM SERUM 4.6 MEQ/L (3.5-5.1); SODIUM LEVEL 139 MEQ/L (136-145)
[2022-01-11] MEDS: AMIODARONE 200 MG TAB (PACERONE) PO SCH (09:19)
[2022-01-11] MEDS: APIXABAN 2.5 MG TAB (ELIQUIS) PO SCH ×2 (09:19→20:45)
[2022-01-11] MEDS: METOCLOPRAMIDE INJ 10MG/2ML VIAL (J2765 PER 1) IV SCH ×4 (09:19→20:45)
[2022-01-11] MEDS: COLCHICINE 0.6 MG TABLET PO SCH (09:19)
[2022-01-11] MEDS: METOPROLOL TART 25 MG TABLET PO SCH (09:19)
[2022-01-11] MEDS: MIRALAX *UNIT DOSE* 17GM PACKET PO SCH (09:20)
[2022-01-11] MEDS: LEVEMIR (INSULIN DETEMIR) 1 UNITS/0.01ML SC SCH (09:20)
[2022-01-11] MEDS: DEXTROSE 50% 50 ML SYRINGE IV PRN ×3 (13:50→20:45)
[2022-01-11] MEDS: SODIUM CHLORIDE 0.9% INJ 10 ML SYR IV PRN (13:51)
[2022-01-11 14:00] VITALS: BP 114/54
[2022-01-11] MEDS: FUROSEMIDE 40 MG TAB PO SCH (16:38)
[2022-01-11] MEDS: D5W/0.9% SODIUM CHLORIDE 1,000 ML IV SCH (18:05)
[2022-01-11] MEDS: METOPROLOL TART 12.5 MG PER 1/2 TAB PO SCH ×2 (20:48→20:49)
[2022-01-11 22:00] VITALS: BP 133/94
[2022-01-12 04:48] VITALS: BP 122/61
[2022-01-12] MEDS: SODIUM CHLORIDE 0.9% INJ 10 ML SYR IV SCH ×2 (05:44→18:01)
[2022-01-12] MEDS: INSULIN LISPRO (NovoLOG) PER UNIT SC SCH ×5 (05:56→20:27)
[2022-01-12 06:48] LABS: HEMATOCRIT 30.2 % (36.0-47.0); HEMOGLOBIN 8.9 g/dl (12.0-15.5); MEAN CORPUSCULAR HEMOGLOBIN 24.5 pg (27.0-33.0); MEAN CORPUSCULAR HGB CONC 29.5 g/dl (32.0-36.5); PLATELET COUNT, AUTOMATED 356 10^3/uL (150-450); RED BLOOD COUNT 3.64 10^6/uL (4.00-5.40); WHITE BLOOD COUNT 10.4 10^3/uL (4.0-10.0)
[2022-01-12] MEDS: D5W/0.9% SODIUM CHLORIDE 1,000 ML IV SCH (06:55)
[2022-01-12 07:05] LABS: BLOOD UREA NITROGEN 15 MG/DL (7-18); CALCIUM LEVEL 9.5 MG/DL (8.8-10.2); CARBON DIOXIDE LEVEL 26 MEQ/L (21-32); CHLORIDE LEVEL 108 MEQ/L (98-107); CREATININE FOR GFR 0.74 MG/DL (0.55-1.30); GLOMERULAR FILTRATION RATE > 60.0 (>32); GLUCOSE, FASTING 90 MG/DL (70-100); POTASSIUM SERUM 4.3 MEQ/L (3.5-5.1); SODIUM LEVEL 140 MEQ/L (136-145)
[2022-01-12] MEDS: METOCLOPRAMIDE INJ 10MG/2ML VIAL (J2765 PER 1) IV SCH ×4 (09:39→21:23)
[2022-01-12] MEDS: MIRALAX *UNIT DOSE* 17GM PACKET PO SCH (09:40)
[2022-01-12] MEDS: COLCHICINE 0.6 MG TABLET PO SCH (09:41)
[2022-01-12] MEDS: APIXABAN 2.5 MG TAB (ELIQUIS) PO SCH ×2 (09:41→21:23)
[2022-01-12] MEDS: METOPROLOL TART 12.5 MG PER 1/2 TAB PO SCH ×2 (09:41→21:24)
[2022-01-12] MEDS: AMIODARONE 200 MG TAB (PACERONE) PO SCH (09:41)
[2022-01-12 09:42] VITALS: BP 136/70
[2022-01-12] MEDS: FUROSEMIDE 40 MG TAB PO SCH ×2 (09:42→12:48)
[2022-01-12] MEDS: ACETAMINOPHEN TAB 650MG DOSE (2X325MG) PO PRN (12:48)
[2022-01-12 14:00] VITALS: BP_SYST 119; BP_DIAS 49; BP_DIAS 52
[2022-01-12 18:00] VITALS: BP 121/53
[2022-01-12] MEDS: RAMELTEON 8 MG TAB (ROZEREM) PO PRN (21:23)
[2022-01-12 22:00] VITALS: BP 118/52
[2022-01-12] MEDS: PERCOCET 5MG/325MG TAB PO PRN (22:13)
[2022-01-13] VITALS (7 sets, daily range): BP systolic 118–149; BP diastolic 48–75
[2022-01-13] MEDS: PERCOCET 5MG/325MG TAB PO PRN (04:23)
[2022-01-13] MEDS: SODIUM CHLORIDE 0.9% INJ 10 ML SYR IV SCH ×2 (05:25→18:13)
[2022-01-13 06:14] LABS: HEMOGLOBIN 8.5 g/dl (12.0-15.5); MEAN CORPUSCULAR HEMOGLOBIN 25.1 pg (27.0-33.0); MEAN CORPUSCULAR HGB CONC 29.3 g/dl (32.0-36.5); MEAN CORPUSCULAR VOLUME 85.5 fl (80.0-96.0); PLATELET COUNT, AUTOMATED 344 10^3/uL (150-450); RED BLOOD COUNT 3.39 10^6/uL (4.00-5.40); WHITE BLOOD COUNT 7.3 10^3/uL (4.0-10.0)
[2022-01-13 06:35] LABS: BLOOD UREA NITROGEN 14 MG/DL (7-18); CALCIUM LEVEL 9.5 MG/DL (8.8-10.2); CARBON DIOXIDE LEVEL 23 MEQ/L (21-32); CHLORIDE LEVEL 108 MEQ/L (98-107); CREATININE FOR GFR 0.84 MG/DL (0.55-1.30); GLOMERULAR FILTRATION RATE > 60.0 (>32); GLUCOSE, FASTING 107 MG/DL (70-100); POTASSIUM SERUM 4.1 MEQ/L (3.5-5.1); SODIUM LEVEL 140 MEQ/L (136-145)
[2022-01-13] MEDS: INSULIN LISPRO (NovoLOG) PER UNIT SC SCH ×4 (07:30→21:00)
[2022-01-13] MEDS ORDERED: MIRALAX *UNIT DOSE* 17GM PACKET PO PRN (07:50)
[2022-01-13] MEDS: METOCLOPRAMIDE INJ 10MG/2ML VIAL (J2765 PER 1) IV SCH (08:24)
[2022-01-13] MEDS: FUROSEMIDE 40 MG TAB PO SCH ×2 (08:24→11:53)
[2022-01-13] MEDS: AMIODARONE 200 MG TAB (PACERONE) PO SCH (08:24)
[2022-01-13] MEDS: allopurinoL 100 MG TAB PO SCH (08:25)
[2022-01-13] MEDS: APIXABAN 2.5 MG TAB (ELIQUIS) PO SCH ×2 (08:25→21:35)
[2022-01-13] MEDS: NS 1,000 ML IV SCH ×2 (08:27→21:40)
[2022-01-13] MEDS: METOPROLOL TART 12.5 MG PER 1/2 TAB PO SCH ×2 (08:27→21:36)
[2022-01-13] MEDS: METOCLOPRAMIDE 10MG TAB PO SCH ×2 (11:53→18:12)
[2022-01-13] MEDS: MIRALAX *UNIT DOSE* 17GM PACKET PO SCH ×2 (11:53→21:00)
[2022-01-13] MEDS: RAMELTEON 8 MG TAB (ROZEREM) PO PRN (21:36)
[2022-01-14] MEDS: METOCLOPRAMIDE 10MG TAB PO SCH ×4 (00:10→18:25)
[2022-01-14 02:00] VITALS: BP 132/62
[2022-01-14 06:00] VITALS: BP 130/61
[2022-01-14] MEDS: SODIUM CHLORIDE 0.9% INJ 10 ML SYR IV SCH ×2 (06:08→18:26)
[2022-01-14 06:16] LABS: MEAN CORPUSCULAR HGB CONC 29.4 g/dl (32.0-36.5); PLATELET COUNT, AUTOMATED 414 10^3/uL (150-450); WHITE BLOOD COUNT 9.6 10^3/uL (4.0-10.0)
[2022-01-14 06:52] LABS: BLOOD UREA NITROGEN 13 MG/DL (7-18); CALCIUM LEVEL 9.6 MG/DL (8.8-10.2); CARBON DIOXIDE LEVEL 21 MEQ/L (21-32); CHLORIDE LEVEL 107 MEQ/L (98-107); CREATININE FOR GFR 0.82 MG/DL (0.55-1.30); GLOMERULAR FILTRATION RATE > 60.0 (>32); GLUCOSE, FASTING 137 MG/DL (70-100); POTASSIUM SERUM 4.1 MEQ/L (3.5-5.1); SODIUM LEVEL 140 MEQ/L (136-145)
[2022-01-14] MEDS: INSULIN LISPRO (NovoLOG) PER UNIT SC SCH ×4 (07:30→21:00)
[2022-01-14] MEDS: allopurinoL 100 MG TAB PO SCH (10:09)
[2022-01-14] MEDS: AMIODARONE 200 MG TAB (PACERONE) PO SCH (10:09)
[2022-01-14] MEDS: METOPROLOL TART 12.5 MG PER 1/2 TAB PO SCH ×2 (10:09→20:34)
[2022-01-14] MEDS: MIRALAX *UNIT DOSE* 17GM PACKET PO SCH ×2 (10:09→20:34)
[2022-01-14] MEDS: FUROSEMIDE 40 MG TAB PO SCH ×2 (10:10→12:36)
[2022-01-14] MEDS: APIXABAN 2.5 MG TAB (ELIQUIS) PO SCH ×2 (10:10→20:34)
[2022-01-14] MEDS: NS 1,000 ML IV SCH (12:32)
[2022-01-14 12:37] VITALS: BP 133/59
[2022-01-14 14:00] VITALS: BP 132/60
[2022-01-14] MEDS: PERCOCET 5MG/325MG TAB PO PRN (20:40)
[2022-01-14] MEDS: ONDANSETRON 4MG/2ML VIAL IV PRN (20:46)
[2022-01-14] MEDS: SODIUM CHLORIDE 0.9% INJ 10 ML SYR IV PRN (20:47)
[2022-01-14 22:00] VITALS: BP 123/60
[2022-01-15] MEDS: METOCLOPRAMIDE 10MG TAB PO SCH ×4 (00:23→17:30)
[2022-01-15] MEDS: RAMELTEON 8 MG TAB (ROZEREM) PO PRN (00:23)
[2022-01-15] MEDS: NS 1,000 ML IV SCH ×3 (03:39→21:20)
[2022-01-15 06:00] VITALS: BP 122/58
[2022-01-15 06:27] LABS: HEMATOCRIT 31.3 % (36.0-47.0); HEMOGLOBIN 9.3 g/dl (12.0-15.5); MEAN CORPUSCULAR HEMOGLOBIN 25.1 pg (27.0-33.0); MEAN CORPUSCULAR HGB CONC 29.7 g/dl (32.0-36.5); MEAN CORPUSCULAR VOLUME 84.6 fl (80.0-96.0); PLATELET COUNT, AUTOMATED 348 10^3/uL (150-450); WHITE BLOOD COUNT 8.8 10^3/uL (4.0-10.0)
[2022-01-15] MEDS: SODIUM CHLORIDE 0.9% INJ 10 ML SYR IV SCH ×2 (06:39→17:30)
[2022-01-15 06:59] LABS: ALBUMIN 2.3 GM/DL (3.2-5.2); ALT/SGPT 15 U/L (12-78); BILIRUBIN,TOTAL 0.5 MG/DL (0.2-1.0); BLOOD UREA NITROGEN 8 MG/DL (7-18); CALCIUM LEVEL 8.8 MG/DL (8.8-10.2); CARBON DIOXIDE LEVEL 26 MEQ/L (21-32); CHLORIDE LEVEL 106 MEQ/L (98-107); CREATININE FOR GFR 0.85 MG/DL (0.55-1.30); GLOMERULAR FILTRATION RATE > 60.0 (>32); GLUCOSE, FASTING 145 MG/DL (70-100); MAGNESIUM LEVEL 1.6 MG/DL (1.8-2.4); PHOSPHORUS LEVEL 2.6 MG/DL (2.5-4.9); POTASSIUM SERUM 3.2 MEQ/L (3.5-5.1); SODIUM LEVEL 140 MEQ/L (136-145); TOTAL PROTEIN 5.1 GM/DL (6.4-8.2)
[2022-01-15] MEDS: INSULIN LISPRO (NovoLOG) PER UNIT SC SCH ×4 (08:49→21:00)
[2022-01-15] MEDS: FUROSEMIDE 40 MG TAB PO SCH ×2 (08:50→12:33)
[2022-01-15] MEDS: KCL 10MEQ/100ML SWI (KRUN) 10 MEQ in IV 1 EA IV SCH ×4 (08:50→12:33)
[2022-01-15] MEDS: allopurinoL 100 MG TAB PO SCH (08:50)
[2022-01-15] MEDS: MIRALAX *UNIT DOSE* 17GM PACKET PO SCH ×2 (08:50→19:58)
[2022-01-15] MEDS: METOPROLOL TART 12.5 MG PER 1/2 TAB PO SCH ×2 (08:50→19:58)
[2022-01-15] MEDS: AMIODARONE 200 MG TAB (PACERONE) PO SCH (08:51)
[2022-01-15] MEDS: APIXABAN 2.5 MG TAB (ELIQUIS) PO SCH ×2 (08:51→19:58)
[2022-01-15 14:00] VITALS: BP 120/56
[2022-01-15] MEDS: ONDANSETRON 4MG/2ML VIAL IV PRN ×2 (14:30→21:08)
[2022-01-15 20:50] VITALS: BP 123/59
[2022-01-15 22:31] VITALS: BP 123/59
[2022-01-16] MEDS: METOCLOPRAMIDE 10MG TAB PO SCH ×2 (00:53→05:57)
[2022-01-16] MEDS: SODIUM CHLORIDE 0.9% INJ 10 ML SYR IV SCH (05:46)
[2022-01-16 05:52] VITALS: BP 138/78
[2022-01-16] MEDS: MIRALAX *UNIT DOSE* 17GM PACKET PO SCH (08:08)
[2022-01-16] MEDS: APIXABAN 2.5 MG TAB (ELIQUIS) PO SCH (08:09)
[2022-01-16] MEDS: allopurinoL 100 MG TAB PO SCH (08:09)
[2022-01-16] MEDS: AMIODARONE 200 MG TAB (PACERONE) PO SCH (08:09)
[2022-01-16] MEDS: FUROSEMIDE 40 MG TAB PO SCH (08:09)
[2022-01-16] MEDS: INSULIN LISPRO (NovoLOG) PER UNIT SC SCH (08:09)
[2022-01-16 08:10] VITALS: BP 126/58
[2022-01-16] MEDS: ACETAMINOPHEN TAB 650MG DOSE (2X325MG) PO PRN (08:10)
[2022-01-16] MEDS: METOPROLOL TART 12.5 MG PER 1/2 TAB PO SCH (08:10)
[2022-01-16] MEDS ORDERED: METO1TAB87 PO (10:03)
[2022-01-16] MEDS ORDERED: MIRA1POW3 PO (10:03)
[2022-01-16] MEDS ORDERED: METO10TA2 PO (10:03)
[2022-01-16] MEDS ORDERED: ONDA-83 PO (10:03)
[2022-01-16] MEDS ORDERED: ALLO10TA PO (10:03)
== END 2022-01-16 11:11 | DRG 336 ==
LOC: M ED 13:56 → M ED INP 21:05 → M MS5PR 12-24 02:33 → M PCU 12-27 14:17 → M MSPAV 01-06 17:07
PROVIDERS: ADMIT Internal Medicine; ATTEND Internal Medicine
PROC: 02HV33Z Insertion of Infusion Device into Superior Vena Cava, Percutaneous Approach (ICD-10-PCS; 2021-12-30)
PROC: 0DC80ZZ Extirpation of Matter from Small Intestine, Open Approach (ICD-10-PCS; 2021-12-31)
PROC: 0DN80ZZ Release Small Intestine, Open Approach (ICD-10-PCS; principal; 2021-12-31 15:30)
PROC: 3E0436Z Introduction of Nutritional Substance into Central Vein, Percutaneous Approach (ICD-10-PCS; 2022-01-01)
PROC: 30233N1 Transfusion of Nonautologous Red Blood Cells into Peripheral Vein, Percutaneous Approach (ICD-10-PCS; 2022-01-02)
DX: K56.52 Intestinal adhesions [bands] with complete obstruction (principal); I13.0 Hypertensive heart and chronic kidney disease with heart failure and stage 1 through stage 4 chronic kidney disease, or unspecified chronic kidney disease; N39.0 Urinary tract infection, site not specified; K91.89 Other postprocedural complications and disorders of digestive system; E11.22 Type 2 diabetes mellitus with diabetic chronic kidney disease; I50.9 Heart failure, unspecified; I48.91 Unspecified atrial fibrillation; K74.60 Unspecified cirrhosis of liver; K56.7 Ileus, unspecified; N26.1 Atrophy of kidney (terminal); D63.1 Anemia in chronic kidney disease; N20.0 Calculus of kidney; K56.1 Intussusception; N18.9 Chronic kidney disease, unspecified; K44.9 Diaphragmatic hernia without obstruction or gangrene; K56.41 Fecal impaction; M10.9 Gout, unspecified; B96.5 Pseudomonas (aeruginosa) (mallei) (pseudomallei) as the cause of diseases classified elsewhere; Z53.31 Laparoscopic surgical procedure converted to open procedure; Z95.0 Presence of cardiac pacemaker; Z87.891 Personal history of nicotine dependence; Z79.01 Long term (current) use of anticoagulants; Z79.84 Long term (current) use of oral hypoglycemic drugs; Z79.899 Other long term (current) drug therapy; Z95.2 Presence of prosthetic heart valve

== ENCOUNTER → 2022-01-20 | Outpatient (REF) ==
[~2022-01-20] MED LIST changes: +ALLO10TA PO; +AMIO200T49 PO; +CYAN1000VL IM; +METF500T13 PO; +METO10TA2 PO; +METO1TAB87 PO; +MIRA1POW3 PO; +ONDA-83 PO; +VENO20IN IV
[2022-01-20 09:38] LABS: HEMATOCRIT 36.3 % (36.0-47.0); HEMOGLOBIN 11.1 g/dl (12.0-15.5); MEAN CORPUSCULAR HEMOGLOBIN 25.3 pg (27.0-33.0); MEAN CORPUSCULAR HGB CONC 30.6 g/dl (32.0-36.5); MEAN CORPUSCULAR VOLUME 82.7 fl (80.0-96.0); PLATELET COUNT, AUTOMATED 296 10^3/uL (150-450); RED BLOOD COUNT 4.39 10^6/uL (4.00-5.40); WHITE BLOOD COUNT 5.2 10^3/uL (4.0-10.0)
[2022-01-20 10:23] LABS: ALBUMIN 2.4 GM/DL (3.2-5.2); ALT/SGPT 21 U/L (12-78); BILIRUBIN,TOTAL 0.4 MG/DL (0.2-1.0); BLOOD UREA NITROGEN 10 MG/DL (7-18); CALCIUM LEVEL 10.1 MG/DL (8.8-10.2); CARBON DIOXIDE LEVEL 36 MEQ/L (21-32); CHLORIDE LEVEL 97 MEQ/L (98-107); CREATININE FOR GFR 0.88 MG/DL (0.55-1.30); FERRITIN 162 NG/ML (8-252); GLOMERULAR FILTRATION RATE > 60.0 (>32); GLUCOSE, FASTING 118 MG/DL (70-100); IRON (FE) 21 UG/DL (50-170); MAGNESIUM LEVEL 1.3 MG/DL (1.8-2.4); POTASSIUM SERUM 2.8 MEQ/L (3.5-5.1); SODIUM LEVEL 142 MEQ/L (136-145); TOTAL PROTEIN 5.6 GM/DL (6.4-8.2)
[2022-01-20 10:31] LABS: HEMOGLOBIN A1c 6.6 %
== END ==
LOC: SKLAB5 09:44
PROVIDERS: ATTEND Internal Medicine
DX: I50.9 Heart failure, unspecified (principal)

== ENCOUNTER → 2022-01-22 | Outpatient (REF) ==
[2022-01-22 14:06] LABS: CREATININE FOR GFR 1.06 MG/DL (0.55-1.30); GLOMERULAR FILTRATION RATE 52.7 (>32); POTASSIUM SERUM 4.1 MEQ/L (3.5-5.1)
== END ==
LOC: SKLAB5 06:00
PROVIDERS: ATTEND Internal Medicine
DX: E87.6 Hypokalemia (principal)

== ENCOUNTER → 2022-01-29 | Outpatient (REF) ==
[2022-01-29 08:48] LABS: APPEARANCE, URINE CLOUDY (CLEAR); BACTERIA, URINE AUTO 1+ (NEGATIVE); BILIRUBIN, URINE AUTO NEGATIVE (NEGATIVE); BLOOD, URINE BLOOD 1+ (NEGATIVE); COLOR, URINE YELLOW (YELLOW); GLUCOSE, URINE (UA) AUTO NEGATIVE (NEGATIVE); KETONE, URINE AUTO NEGATIVE (NEGATIVE); LEUKOCYTE ESTERASE, URINE AUTO 3+ (NEGATIVE); MUCUS, URINE SMALL (NEGATIVE); NITRITE, URINE AUTO NEGATIVE (NEGATIVE); PROTEIN, URINE AUTO 1+ mg/dL (NEGATIVE); RBC, URINE AUTO 18 /HPF (0-3); SPECIFIC GRAVITY URINE AUTO 1.012 (1.002-1.035); SQUAMOUS EPITHELIAL CELL UR AU 1 /HPF (0-6); TRANSITIONAL EPITHELIAL AUTO 3 /HPF; UROBILINOGEN, URINE AUTO 0.2 mg/dL (0.0-2.0); WBC, URINE AUTO TNTC /HPF (0-3)
== END ==
LOC: SKLAB5 08:18
PROVIDERS: ATTEND Internal Medicine
DX: R35.0 Frequency of micturition (principal)

== ENCOUNTER → 2022-02-04 | Outpatient (REF) | LOC: SKLAB5 16:05 | PROVIDERS: ATTEND Internal Medicine | DX: M40.294 Other kyphosis, thoracic region (principal); M48.061 Spinal stenosis, lumbar region without neurogenic claudication; Z95.0 Presence of cardiac pacemaker; M85.88 Other specified disorders of bone density and structure, other site; M54.59 Other low back pain; Z91.81 History of falling ==

== ENCOUNTER → 2022-02-05 | Outpatient (REF) ==
[2022-02-05 12:50] LABS: HEMATOCRIT 36.8 % (36.0-47.0); HEMOGLOBIN 11.7 g/dl (12.0-15.5); MEAN CORPUSCULAR HEMOGLOBIN 26.7 pg (27.0-33.0); MEAN CORPUSCULAR HGB CONC 31.8 g/dl (32.0-36.5); MEAN CORPUSCULAR VOLUME 83.8 fl (80.0-96.0); PLATELET COUNT, AUTOMATED 233 10^3/uL (150-450); RED BLOOD COUNT 4.39 10^6/uL (4.00-5.40); WHITE BLOOD COUNT 13.9 10^3/uL (4.0-10.0)
[2022-02-05 13:24] LABS: ALBUMIN 2.7 GM/DL (3.2-5.2); BILIRUBIN,TOTAL 0.4 MG/DL (0.2-1.0); CALCIUM LEVEL 10.1 MG/DL (8.8-10.2); CREATININE FOR GFR 1.57 MG/DL (0.55-1.30); FREE THYROXINE INDEX 5.3 % (1.3-4.8); GLOMERULAR FILTRATION RATE 33.5 (>32); MAGNESIUM LEVEL 1.4 MG/DL (1.8-2.4); POTASSIUM SERUM 5.6 MEQ/L (3.5-5.1); THYROID STIMULATING HORMONE 4.99 uIU/ML (0.358-3.740); THYROXINE (T4) 12.9 UG/DL (4.5-12.0); TOTAL PROTEIN 5.9 GM/DL (6.4-8.2)
== END ==
LOC: SKLAB5 08:25
PROVIDERS: ATTEND Internal Medicine
DX: E11.9 Type 2 diabetes mellitus without complications (principal); R53.1 Weakness

== ENCOUNTER → 2022-02-07 | Outpatient (REF) | payer MEDICARE ==
[2022-02-07 08:05] LABS: HEMATOCRIT 39.3 % (36.0-47.0); HEMOGLOBIN 12.2 g/dl (12.0-15.5); MEAN CORPUSCULAR VOLUME 83.8 fl (80.0-96.0); PLATELET COUNT, AUTOMATED 222 10^3/uL (150-450); RED BLOOD COUNT 4.69 10^6/uL (4.00-5.40); WHITE BLOOD COUNT 9.1 10^3/uL (4.0-10.0)
== END ==
LOC: SKLAB5 08:43
PROVIDERS: ATTEND Internal Medicine
DX: K74.60 Unspecified cirrhosis of liver (principal)

== ENCOUNTER → 2022-02-20 | Outpatient (REF) | payer MEDICARE ==
[2022-02-20 08:31] LABS: CALCIUM LEVEL 9.8 MG/DL (8.8-10.2); CREATININE FOR GFR 1.16 MG/DL (0.55-1.30); GLOMERULAR FILTRATION RATE 47.5 (>32); POTASSIUM SERUM 4.6 MEQ/L (3.5-5.1)
== END ==
LOC: SKLAB5 07:16
PROVIDERS: ATTEND Nurse Practitioner Family
DX: K74.60 Unspecified cirrhosis of liver (principal)